=== PATIENT | female | born 1950 | race Caucasian/White ===

== ENCOUNTER 2019-03-22 19:09 | Inpatient (IN) | payer MEDICARE ==
--- NOTE | 2019-03-22 19:47 | ED ---
Dizziness HPI - General Chief Complaint: Dizziness Stated Complaint: Dizzy Time Seen by Provider: 03/22/19 19:28 Source: patient Mode of arrival: ambulatory Limitations: no limitations - History of Present Illness Initial Comments: The patient is a 68-year-old female who presents emergency Department with reported vertiginous symptoms which started today. She does report a history of vertigo. States that she took an Antivert and it did improve her symptoms. Her last episode was approximately one year ago. The patient did become concerned because she is on Tegretol and states that she has a tendency to develop low sodium levels. She has never required hospital admission for low sodium. Because of her concern for abnormal labs she did present to the emergency room for evaluation. She denies any visual changes, headache, neck pain or stiff ness. No fevers or chills. Admits to nausea without vomiting. Denies any chest pain or shortness of breath. No unilateral numbness or weakness. Denies photophobia. No recent head trauma. No recent medication changes. There are no other alleviating, precipitating or modifying factors - Related Data Home Medications Medication Instructions Recorded Confirmed Alectinib HCl [Alecensa] 600 mg PO BID 03/22/19 03/22/19 Fluticasone Nasal [place] [Flonase 2 spr EA NOSTRIL HS 03/22/19 03/22/19 Nasal [place]] Losartan [Cozaar] 75 mg PO HS 03/22/19 03/22/19 Meclizine [Antivert] 12.5 mg PO DAILY PRN 03/22/19 03/22/19 Omeprazole 40 mg PO DAILY 03/22/19 03/22/19 carBAMazepine [TEGretol] 200 mg PO Q12H 03/22/19 03/22/19 QUEtiapine [SEROquel] 100 mg PO HS 03/23/19 03/23/19 Allergies Allergy/AdvReac Type Severity Reaction Status Date / Time aspirin Allergy Rapid Verified 03/22/19 20:41 Heart Rate bee venom protein (honey bee) Allergy Anaphylaxis Verified 03/22/19 20:41 Iodinated Contrast- Oral and Allergy Rash/Hives Verified 03/22/19 20:41 IV Dye nickel Allergy Rash/Hives Verified 03/22/19 20:41 Sulfa (Sulfonamide Allergy Rash/Hives Verified 03/22/19 20:41 Antibiotics) Review of Systems ROS Statement: Those systems with pertinent positive or pertinent negative responses have been documented in the HPI. ROS Other: All systems not noted in ROS Statement are negative. Past Medical History Past Medical History: Cancer, Hypertension Additional Past Medical History / Comment(s): vertigo, lung cancer chemo medication daily (2019), History of Any Multi-Drug Resistant Organisms: None Reported Past Surgical History: Joint Replacement Additional Past Surgical History / Comment(s): left knee replacement, Past Psychological History: Bipolar Smoking Status: Former smoker Past Alcohol Use History: Rare Past Drug Use History: None Reported - Past Family History Mother Family Medical History: Myocardial Infarction ([place]) Father Family Medical History: CVA/TIA General Exam Limitations: no limitations Course Vital Signs 03/22/19 03/22/19 03/22/19 19:14 22:09 22:43 Temperature 97.6 F 97.7 F Pulse Rate 77 74 77 Respiratory 18 18 16 Rate Blood Pressure 188/84 178/75 179/77 O2 Sat by Pulse 99 96 98 Oximetry EKG Findings - EKG Comments: EKG Findings:: EKG demonstrates a normal sinus rhythm with a ventricular rate of 80. LA interval 158. QRS E4. QTC 422. No acute ST segment elevations or depressions concerning for ischemic changes. Medical Decision Making - Medical Decision Making Upon arrival the patient is placed into room 6. She is hooked up to continuous pulse ox and cardiac monitoring. A 12-lead EKG is performed the patient which demonstrates no acute findings. Laboratory studies were conducted. They were remarkable for sodium of 126. The patient's Tegretol level is therapeutic. I did discuss results with the patient as she does have symptomatic hyponatremia I did recommend establishing an IV for fluid hydration. The patient did agree to this. She was given a 500 mL bolus. She was started at heart cc per hour. I did recommend lites every 4 as well as admission to the hospital for a repeat of her sodium in the morning. The patient did agree to this. I did recommend a computed tomography scan of her brain however the patient refused stating that her vertiginous symptoms are no different than her previous episodes. I did call and discuss the case with Dr. Rodriguez who did accept admission for the patient. Bridging orders were placed in the patient was transported to floor in stable condition - Lab Data Result diagrams: 03/22/19 20:31 03/22/19 20:31 Lab Results 03/22/19 03/22/19 Range/Units 20:31 20:31 WBC 9.3 (3.8-10.6) k/uL RBC 4.29 (3.80-5.40) m/uL Hgb 12.7 (11.4-16.0) gm/dL Hct 37.0 (34.0-46.0) % MCV 86.4 (80.0-100.0) fL MCH 29.6 (25.0-35.0) pg MCHC 34.2 (31.0-37.0) g/dL RDW 14.3 (11.5-15.5) % Plt Count 211 (150-450) k/uL Neutrophils % 80 % Lymphocytes % 14 % Monocytes % 5 % Eosinophils % 1 % Basophils % 0 % Neutrophils # 7.5 (1.3-7.7) k/uL Lymphocytes # 1.3 (1.0-4.8) k/uL Monocytes # 0.5 (0-1.0) k/uL Eosinophils # 0.1 (0-0.7) k/uL Basophils # 0.0 (0-0.2) k/uL Sodium 126 L (137-145) mmol/L Potassium 4.8 (3.5-5.1) mmol/L Chloride 91 L (98-107) mmol/L Carbon Dioxide 23 (22-30) mmol/L Anion Gap 12 mmol/L BUN 16 (7-17) mg/dL Creatinine 0.54 (0.52-1.04) mg/dL Est GFR (CKD-EPI)AfAm >90 (>60 ml/min/1.73 sqM) Est GFR (CKD-EPI)NonAf >90 (>60 ml/min/1.73 sqM) Glucose 123 H (74-99) mg/dL Calcium 9.0 (8.4-10.2) mg/dL Total Bilirubin 0.8 (0.2-1.3) mg/dL AST 38 H (14-36) U/L ALT 23 (9-52) U/L Alkaline Phosphatase 153 H (38-126) U/L Total Protein 7.4 (6.3-8.2) g/dL Albumin 4.3 (3.5-5.0) g/dL TSH 0.593 (0.465-4.680) mIU/L Carbamazepine 6.0 ug/mL Disposition Clinical Impression: Acute hyponatremia, Tegretol-induced dizziness Disposition: ADMITTED IP TO THIS [facility] Condition: Stable Is patient prescribed a controlled substance at d/c from ED?: No Decision to Admit Reason: Admit from EC Decision Date: 03/22/19 Decision Time: 22:18
[2019-03-22 20:55] LABS: Basophils % (A) 0 %; Eosinophils # (A) 0.1 k/uL (0-0.7); Eosinophils % (A) 1 %; HGB 12.7 gm/dL (11.4-16.0); Lymphocytes # (A) 1.3 k/uL (1.0-4.8); Lymphocytes % (A) 14 %; MCH 29.6 pg (25.0-35.0); MCHC 34.2 g/dL (31.0-37.0); MCV 86.4 fL (80.0-100.0); Mean Platelet Volume 7.2; Monocytes # (A) 0.5 k/uL (0-1.0); Monocytes % (A) 5 %; Neutrophils # (A) 7.5 k/uL (1.3-7.7); Neutrophils % (A) 80 %; Platelet Count 211 k/uL (150-450); RBC 4.29 m/uL (3.80-5.40); RDW 14.3 % (11.5-15.5); WBC 9.3 k/uL (3.8-10.6)
[2019-03-22 21:15] LABS: African American GFR (CKD) >90 (>60 ml/min/1.73 sqM); Albumin 4.3 g/dL (3.5-5.0); Anion Gap 12 mmol/L; Blood Urea Nitrogen 16 mg/dL (7-17); Carbon Dioxide 23 mmol/L (22-30); Chloride 91 mmol/L (98-107); Glucose 123 mg/dL (74-99); Sodium 126 mmol/L (137-145); Total Bilirubin 0.8 mg/dL (0.2-1.3); Total Protein 7.4 g/dL (6.3-8.2)
[2019-03-22 21:25] LABS: ALT 23 U/L (9-52); AST 38 U/L (14-36); Alkaline Phosphatase 153 U/L (38-126); Potassium 4.8 mmol/L (3.5-5.1)
[2019-03-22] MEDS ORDERED: SODIUM CHLORIDE 0.9% 500 ML 500 ML IV ONE (22:16)
[2019-03-22] MEDS ORDERED: NALOXONE 0.4 MG/ML 1 ML VIAL IV PRN (22:18)
[2019-03-22] MEDS ORDERED: MECLIZINE 12.5 MG TAB PO PRN (22:20)
[2019-03-22] MEDS: SODIUM CHLORIDE 0.9% 1,000 ML IV SCH (22:47)
[2019-03-23] MEDS: carBAMazepine 200 MG TAB PO SCH ×2 (00:51→09:17)
[2019-03-23 03:06] LABS: Appearance,Urine Clear (Clear); Bilirubin,Urine Negative (Negative); Blood,Urine Negative (Negative); Color,Urine Colorless; Glucose,Urine (UA) Negative (Negative); Ketones,Urine Negative (Negative); Leukocyte Esterase,Urine Negative (Negative); Nitrite,Urine Negative (Negative); Protein,Urine Negative (Negative); Specific Gravity,Urine 1.003 (1.001-1.035); Urobilinogen,Urine <2.0 mg/dL (<2.0)
[2019-03-23 05:21] VITALS: RESP 16; TEMP 97.7
[2019-03-23 07:29] LABS: Basophils % (A) 0 %; Eosinophils # (A) 0.1 k/uL (0-0.7); Eosinophils % (A) 1 %; HCT 38.1 % (34.0-46.0); HGB 12.9 gm/dL (11.4-16.0); Lymphocytes # (A) 1.6 k/uL (1.0-4.8); Lymphocytes % (A) 22 %; MCH 29.3 pg (25.0-35.0); MCHC 33.9 g/dL (31.0-37.0); MCV 86.5 fL (80.0-100.0); Mean Platelet Volume 7.6; Monocytes # (A) 0.4 k/uL (0-1.0); Monocytes % (A) 6 %; Neutrophils # (A) 4.8 k/uL (1.3-7.7); Neutrophils % (A) 69 %; Platelet Count 241 k/uL (150-450); RDW 15.2 % (11.5-15.5)
[2019-03-23 07:35] LABS: African American GFR (CKD) >90 (>60 ml/min/1.73 sqM); Anion Gap 8 mmol/L; Blood Urea Nitrogen 11 mg/dL (7-17); Calcium 9.1 mg/dL (8.4-10.2); Carbon Dioxide 29 mmol/L (22-30); Chloride 94 mmol/L (98-107); Glucose 100 mg/dL (74-99); Potassium 4.7 mmol/L (3.5-5.1); Sodium 131 mmol/L (137-145)
[2019-03-23] MEDS ORDERED: PANTOPRAZOLE 40 MG TABLET PO SCH (09:00)
[2019-03-23] MEDS ORDERED: ALECTINIB HCL PO SCH (09:00)
[2019-03-23] MEDS: SODIUM CHLORIDE 0.9% 1,000 ML IV SCH (09:18)
--- NOTE | 2019-03-23 14:48 | HP ---
HISTORY AND PHYSICAL HISTORY AND PHYSICAL/DISCHARGE SUMMARY: This is a combination of combined history and physical and discharge summary. CHIEF COMPLAINT: Dizziness and dehydration. HISTORY OF PRESENT ILLNESS: This 68-year-old woman with a past medical history of multiple medical problems including hypertension, history of lung cancer, chemo medication daily, history of bipolar, being followed by Dr. Eaton in the [facility] area, was actually camping locally and the patient apparently felt dizzy initially. The patient was taking Antivert symptomatic relief of that. Because of lack of improvement, patient came to [facility] and was admitted to the hospital for further evaluation and treatment. The patient also had a Tegretol induced hyponatremia previously apparently, and sodium was found to be 126. With IV fluids, sodium is improving to 131 and currently the patient would like to go home at this time. There is no history of fever, rigors or chills. No history of headache, loss of conscious or seizures at this time. The patient was spending more time camping at this time but the patient was not drinking Gatorade as she should be according to her. PAST MEDICAL HISTORY: History of hypertension, history of vertigo, history of lung cancer, history of joint replacement, history of bipolar. MEDICATIONS: Prior to admission home medications are: 1. Seroquel 100 mg q.h.s. 2. Tegretol 200 mg p.o. b.i.d. 3. Omeprazole 40 mg p.o. daily. 4. Antivert 12.5 mg daily p.r.n. 5. Cozaar 70 mg q.h.s. 6. Flonase 2 sprays q.h.s. 7. Alecensa 60 mg p.o. b.i.d. ALLERGIES: ASPIRIN, HONEY BEE, IODINATED CONTRAST DYES, NICKEL AND SULFA. FAMILY HISTORY: History of myocardial infarction in the family. SOCIAL HISTORY: Previous history of smoking. No history of current smoking or alcohol intake. REVIEW OF SYSTEMS: ENT: As mentioned earlier. Cardiovascular system: No angina or palpitations. RESPIRATORY: No cough or hemoptysis. GI as mentioned earlier. GI no dysuria. NERVOUS SYSTEM: As mentioned earlier. ALLERGIES/IMMUNOLOGY: No asthma or hayfever. MUSCULOSKELETAL as mentioned earlier. HEMATOLOGY/ONCOLOGY: As mentioned earlier. ENDOCRINE: No history of diabetes or hypothyroidism. CONSTITUTIONAL: As mentioned earlier. DERMATOLOGY negative. RHEUMATOLOGY: Negative. PSYCHIATRIC: As mentioned earlier. PHYSICAL EXAM: Patient is alert, oriented x3. Pulse 76, blood pressure 160/75, respiration 16, temperature 97.7, pulse ox 98% on room air. HEENT is conjunctivae normal. Oral mucosa moist. NECK is no jugular venous distention. No carotid bruit. No lymph node enlargement. Cardiovascular system: Normal S1, S2. No S3, no S4. RESPIRATORY: Breath sounds diminished in the bases. No rhonchi. No crackles. ABDOMEN: Soft, nontender. No mass palpable. LEGS: No edema. No swelling. NERVOUS SYSTEM: Higher functions as mentioned earlier. Moves all 4 limbs. No focal motor or sensory deficits. LYMPHATICS: No lymph nodes palpable in the neck, axillae or groin. SKIN: No ulcer, rashes or bleeding. JOINTS: No active deforming arthropathy. LABS: CBC within normal limits. Sodium 130, potassium 4.7, glucose 100. ASSESSMENT: 1. Severe hyponatremia possibly combination of dehydration with hypovolemic hyponatremia as well as Tegretol induced, improving. 2. History of hypertension. 3. History of vertigo. 4. History of lung cancer on chemo. 5. History of bipolar. 6. Remote history of nicotine dependence. RECOMMENDATIONS AND DISCUSSION: In this 68-year-old woman who presented with multiple medical issues, at this time, I recommend to continue the current medications, symptomatic treatment. With IV fluids, the sodium is improving at this time. The most likely hyponatremia predominantly due to hypovolemic hyponatremia. I would recommend resume the rest of the medications and I would also recommend repeat lytes at 3 o'clock and the if the lytes are improved and stable, the patient will be discharged home with recommendation to follow up with primary physician closely with followup labs. Otherwise, prognosis guarded and home medications will be as mentioned will be will be resumed at the time of discharge and further recommendations to follow. MMODL / IJN: [id number] /
[2019-03-23 14:54] VITALS: BP 172/74
[2019-03-23 16:55] VITALS: PULSE 76
[2019-03-23 16:58] LABS: Potassium 4.9 mmol/L (3.5-5.1)
[2019-03-23] MEDS ORDERED: LOSARTAN 25 MG TAB PO SCH (21:00)
== END 2019-03-23 19:05 | disposition home or self-care (01) | DRG 641 ==
LOC: EC 19:09 → 3NMEDONC 22:18
PROVIDERS: ADMIT Internal Medicine; ATTEND Internal Medicine
DX: E87.1 Hypo-osmolality and hyponatremia (principal); E86.0 Dehydration; T42.1X5A Adverse effect of iminostilbenes, initial encounter; I10 Essential (primary) hypertension; Z82.49 Family history of ischemic heart disease and other diseases of the circulatory system; Z85.118 Personal history of other malignant neoplasm of bronchus and lung; Z87.891 Personal history of nicotine dependence; Z96.652 Presence of left artificial knee joint; F31.9 Bipolar disorder, unspecified; Z79.899 Other long term (current) drug therapy; Z88.2 Allergy status to sulfonamides; Z88.6 Allergy status to analgesic agent; Z91.030 Bee allergy status; Z91.041 Radiographic dye allergy status
CPT/HCPCS: 36415; 80048; 80051; 80053; 80156; 81003; 84443; 85025; 93005; 99285